=== PATIENT | female | born 1980 | race African-American/Black ===

== ENCOUNTER 2017-11-14 11:01 | Day surgery (SDC) | payer OTHER ==
[2017-11-13 14:59] VITALS: BMI 24.8
[~2017-11-14 11:01] MED LIST: ceFAZolin SODIUM 1 GM VIAL IVPB ONE
[2017-11-14] MEDS ORDERED: oxyCODONE HCL 5 MG TABLET PO PRN ×2 (13:47)
[2017-11-14] MEDS ORDERED: ONDANSETRON 4 MG/2 ML VIAL IVPUSH PRN (13:47)
[2017-11-14] MEDS ORDERED: PROMETHAZINE HCL 25 MG/1 ML VIAL IVPUSH PRN (13:47)
[2017-11-14] MEDS ORDERED: MIDAZOLAM HCL 2 MG/2 ML SINGLE DOSE VIAL ONE (13:58)
[2017-11-14] MEDS ORDERED: PROPOFOL 20 ML ONE ×2 (13:59→14:10)
[2017-11-14] MEDS ORDERED: ELECTROLYTE-148 SOLN 1,000 ML IV SCH (14:00)
[2017-11-14] MEDS ORDERED: DEXAMETHASONE SOD PHOSPHATE 4 MG/1 ML VIAL ONE (14:26)
[2017-11-14] MEDS ORDERED: LIDOCAINE HCL/PF 2% SDV 5ML VIAL ONE (14:26)
[2017-11-14] MEDS ORDERED: IBUPROFEN 600 MG TABLET (FP) PO PRN (14:41)
[2017-11-14] MEDS ORDERED: ACETAMINOPHEN 325 MG TABLET (FP) PO PRN (14:41)
--- NOTE | 2017-11-14 14:43 | OP ---
Operative Note - Note: Operative Date: 11/14/17 Pre-Operative Diagnosis: Missed AB, recurrent losses Operation: Suction, D&C Findings: Small AV uterus. POC on suction curettage, no RPOC at end of procedure Post-Operative Diagnosis: Same as Pre-op Surgeon: Beau Araiza Anesthesiologist/GENETIC COUNSELOR: Dinora Henry Anesthesia: General Specimens Removed: POC Estimated Blood Loss (mls): 30 Blood Volume Replaced (mls): 0 Fluid Volume Replaced (mls): 500 Operative Report Dictated: Yes
--- NOTE | 2017-11-14 14:57 | HP ---
Past Medical History - Primary Care Physician PCP:: Beau Araiza - Admission Chief Complaint: 37yo [id number] with missed Ab admitted for suction and D&C. History of Present Illness: Recurrent losses. Diagnosed with missed Ab at [facility] () 6wk1d. Patient requested chromosomal analysis of POC. Prior delivery x 1 SAB x 5 Full term x 1 History Source: Patient Limitations to Obtaining History: No Limitations - Past Medical History MEDICAL RECORDS ASSISTANT: Yes: Migraine, Other (pituitary microadenoma) Cardiovascular: No: AFIB, Aneurysm, Aortic Insufficiency, Aortic Stenosis, CAD, CHF, Deep Vein Thrombosis, HTN, Hyperlipdemia, IA, Mitral Insufficiency, Mitral Stenosis, Murmur, Pulmonary Hypertension, Other Pulmonary: Yes: Asthma Gastrointestinal: No: Ascites, Cancer, Constipation, Crohn's Disease, Diverticulitis, Diverticulosis, Esophageal Varices, Gastritis, GERD, GI Bleed, Hemorrhoids, Hiatal Hernia, Inflamatory Bowel Disease, Irritable Bowel Disease, Pancreatitis, Peptic Ulcer Disease, Ulcerative Colitis, Other Hepatobiliary: No: Cirrhosis, Cholelithiasis, Cholecystitis, Choledocholithiasis , Hepatitis A, Hepatitis B, Hepatitis C, Other Renal/: No: Renal Failure, Renal Inusuff, BPH, Cancer, Hematuria, Hemodialysis , Neurogenic Bladder, Renal Calculi, UTI, Other Reproductive: No: Ectopic , Endometriosis, Fibroids, PID, Polycystic Ovary Syndrome, Postmenopausal, Other ...: 8 ...Para: 1 ...Term: 1 ...: 1 ...Spon : 5 ...LMP: 08/28/17 Heme/Onc: No: Anemia, B12 Deficiency, Bleeding Disorder, Cancer, Current Chemotherapy, Current Radiation Therapy, Hemochromatosis, Hypercoaguable State, Myeloproliferative Synd, Sickle Cell Disease, Sickle Cell Trait, Thrombocytopenia, Other Infectious Disease: No: AIDS, C-Diff, Herpes Zoster, HIV, MRSA, STD's, Tuberculosis, VREF, Other Psych: No: Addictions, Anxiety, Bipolar, Depression, Panic, Psychosis, Schizophrenia, Other Musculoskeletal: No: Bursitis, Chronic low back pain, Hemiparesis, Hemiplegia, Osteoarthritis, Paraplegia, Other Rheumatology: No: Fibromyalgia, Gout, Lupus, Rheumatoid Arthritis, Sarcoidosis, Vasculitis, Other ENT: No: Allergic Rhinitis, Sinusitis, Other Endocrine: No: Luis's Disease, Elisa's Disease, Diabetes Insipidus, Diabetes Mellitus, Hyperparathyroidism, Hyperthyroidism, Hypothyroidism, Osteopenia, SIADH, Other Dermatology: No: Basal Cell, Cellulitis, Eczema, Melanoma, Psoriasis, Squamous Cell, Other - Past Surgical History Past Surgical History: No: None, AAA Repair, AICD, Amputation, Appendectomy, Arthrosocopy, AV Fistula/Graft, Bariatric Surgery, Breast Biopsy, Bypass, CABG, Carotid Endarterectomy, Cataract Removal, Cholecystectomy, Colectomy, Colonoscopy, Colostomy, Craniotomy, , Cystectomy, Hernia Repair, Hysterectomy, Ileal Conduit, Ileosotomy, Joint Replacement, Kidney Transplant, Laminectomy, Liver Transplant, Mastectomy, Nephrectomy, Oopherectomy, Orchiectomy, Permanent Pacemaker, Prostatectomy, Splenectomy, Stent, Thoracotomy , TURP, Tonsillectomy, Tubal Ligation, Upper Endoscopy, Valve Replacement, Vasectomy, Vein Stripping/Ligation Hx Myomectomy: No Hx Transabdominal Cerclage: No Additional Surgical History: Cervical cerclage x 2 - Smoking History Smoking history: Never smoked Have you smoked in the past 12 months: No - Alcohol/Substance Use Hx Alcohol Use: Yes (SOCIAL) History of Substance Use: reports: None - Social History Usual Living Arrangement: Yes: With Child ADL: Independent History of Recent Travel: No Home Medications - Allergies Allergies/Adverse Reactions: Allergies Allergy/AdvReac Type Severity Reaction Status Date / Time metronidazole [From Flagyl] Allergy Verified 11/14/17 14:59 - Home Medications Home Medications: Ambulatory Orders Vit 108/Iron/Folic AC [ One Tablet] 1 each PO DAILY 11/13/17 Amoxicillin - [Amoxicillin 500mg Capsule -] 500 mg PO BID #14 capsule 11/14/17 Family Disease History - Family Disease History Family Disease History: CA: Mother (Breast) Other Family History: Aunt (M)- Breast ca Review of Systems - Review of Systems Constitutional: reports: No Symptoms Eyes: reports: No Symptoms HENT: reports: No Symptoms Neck: reports: No Symptoms Cardiovascular: reports: No Symptoms Respiratory: reports: No Symptoms Gastrointestinal: reports: No Symptoms Genitourinary: reports: No Symptoms Breasts: reports: No Symptoms Reported Musculoskeletal: reports: No Symptoms Integumentary: reports: No Symptoms Neurological: reports: No Symptoms Endocrine: reports: No Symptoms Hematology/Lymphatic: reports: No Symptoms Psychiatric: reports: No Symptoms Pain Intensity: 0 Physical Exam-ORDER CALLER Vital Signs: Vital Signs Temperature 97.9 F 11/14/17 11:59 Pulse Rate 60 11/14/17 11:59 Respiratory Rate 16 11/14/17 11:59 Blood Pressure 117/70 11/14/17 11:59 O2 Sat by Pulse Oximetry (%) 99 11/14/17 11:59 Constitutional: Yes: Well Nourished, No Distress, Calm Eyes: Yes: WNL, Conjunctiva Clear HENT: Yes: WNL, Atraumatic, Normocephalic Neck: Yes: WNL, Supple, Trachea Midline Cardiovascular: Yes: WNL, Regular Rate and Rhythm Respiratory: Yes: WNL, Regular, CTA Bilaterally Gastrointestinal: Yes: WNL, Normal Bowel Sounds, Soft ...Rectal Exam: Yes: Deferred Renal/: Yes: WNL Pelvis: Yes: WNL External Genitalia: Yes: Normal Internal Exam Deferred: No Vaginal Exam: Yes: Normal Cervix: Yes: Normal Uterus: Yes: Normal, Anteverted Adnexa: Normal: Left, Right Musculoskeletal: Yes: WNL Extremities: Yes: WNL Integumentary: Yes: WNL Neurological: Yes: WNL, Alert, Oriented ...Motor Strength: WNL Psychiatric: Yes: WNL, Alert, Oriented Imaging - Results Ultrasound: Report Reviewed Assessment/Plan 37yo P1151 with missed Ab admitted for suction and D&C. Pt failed expectant mgt and declined Cytotec. We had a long discussion about the risks, benefits, and alternatives of surgery. I explained the risks of infection, bleeding, scarring , amenorrhea, Asherman's syndrome, infertility, perforation, need for additional surgery to treat any complications, etc. The pt declined expectant management of missed ab or prostaglandin indx. She requested to proceed with surgery
[2017-11-14 15:54] VITALS: TEMP 98.9
[2017-11-14 16:44] VITALS: BP 104/60; PULSE 63
--- NOTE | 2017-11-15 09:10 | OP ---
DATE OF OPERATION: 11/14/2017 PREOPERATIVE DIAGNOSES: Missed , recurrent losses. POSTOPERATIVE DIAGNOSES: Missed , recurrent losses. PROCEDURE: Suction dilatation and curettage. SURGEON: Beau Araiza MD ANESTHESIOLOGIST: Dinora Henry MD ANESTHESIA: General. COMPLICATIONS: None. PATHOLOGY: Products of conception. INTRAVENOUS FLUIDS: 500 mL ESTIMATED BLOOD LOSS: 30 mL FINDINGS: Examination under anesthesia revealed a closed cervix with anteverted uterus. No pelvic or adnexal masses. Suction and curettage revealed products of conception and no retained products of conception at the end of the procedure. DESCRIPTION OF PROCEDURE: The patient was met preoperatively. Risks, benefits, and alternatives of surgery were discussed in details. All questions were answered. The patient was brought to the OR with the IV running. She was placed on the surgical table in the supine position. The general anesthesia was achieved without difficulty. The patient was then placed in a dorsal lithotomy position using adjustable Wyatt stirrups. The patient was prepped and draped in the usual sterile fashion. A timeout procedure was conducted as per standard protocol. A sterile speculum was inserted inside the patient's vagina with good visualization of the cervix. The cervical os was dilated to accommodate size 21 Ramirez dilator. A 7-mm suction curette was then inserted gently into the uterine cavity. A suction curettage was performed without complications, and all of the tissue was removed from the uterus. The suction curette was removed, and the uterine cavity was explored using a sharp curette. No retained products of conception were noted. The instruments were removed from the patient. Good hemostasis was noted. Sponge, lap, instruments counts were correct. The patient was returned to supine position and transferred to recovery room in stable condition. [place] [id number]
--- NOTE | 2017-11-19 11:16 | PATH ---
Surgical Pathology Report Patient Name: [facility]. Rec. #: [id number] /Age/Gender: 1980 (Age: 37) / F Account: [id number] Location: [facility] SURGICAL Taken: 11/14/2017 Received: 11/14/2017 Reported: 11/19/2017 Physicians: Beau Araiza M.D. Specimen(s) Received PRODUCTS OF CONCEPTION, CHROMOSOMAL STUDIES Clinical History Missed , recurrent losses Final Diagnosis PRODUCTS OF CONCEPTION, "CHROMOSOMAL STUDIES ", SUCTION DILATATION AND CURETTAGE: IMMATURE CHORIONIC VILLI AND SCANT DECIDUA CONSISTENT WITH PRODUCTS OF CONCEPTION. CHROMOSOMAL STUDIES ARE PENDING AND WILL BE REPORTED SEPARATELY AN ADDENDUM. Electronically Signed Analia Dougherty M.D. Gross Description Received fresh labeled "chromosomal studies," and indicated on the requisition to be products of conception, is an 8.0 x 4.5 x 1.0 cm aggregate of blue red soft tissue fragments. Villous tissue is identified. No somatic tissue is identified. A artist's representative portion is placed in RPMI solution and sent for chromosomal analysis. An additional artist's representative portion is submitted in one cassette. /11/14/201711/14/2017
== END 2017-11-14 16:43 | disposition home or self-care (01) ==
LOC: JASU-SURG 11:01
PROVIDERS: ATTEND Obstetrics & Gynecology
PROC: 10D17ZZ Extraction of Products of Conception, Retained, Via Natural or Artificial Opening (ICD-10-PCS; principal; 2017-11-14 12:30)
DX: O02.1 Missed abortion (principal); Z3A.01 Less than 8 weeks gestation of pregnancy
CPT/HCPCS: 86850; 86900; 86901; 88305-TC; 94760